=== PATIENT | male | born 1985 | race Caucasian/White ===

== ENCOUNTER 2017-01-16 06:36 | Emergency (ER) | payer MEDICAID ==
[~2017-01-16] VITALS: Ht 170.2 cm; Wt 82.5 kg
[2017-01-16 06:41] VITALS: Ht 170.2 cm; Wt 82.5 kg
[2017-01-16] MEDS ORDERED: ONDANSETRON 4 MG INJ IV STA (07:01)
[2017-01-16 07:23] LABS: BASOPHILS % 0.5 % (0.0-2.0); EOSINOPHILS % 0.1 % (0.0-7.0); HEMATOCRIT 47.9 % (42.0-52.0); HEMOGLOBIN 17.3 g/dl (14.0-18.0); LYMPHOCYTES # 1.9 10^3/ul (0.8-2.9); LYMPHOCYTES % 25.5 % (15.0-51.0); MEAN CORPUSCULAR HEMOGLOBIN 29.4 pg (29.0-33.0); MEAN CORPUSCULAR HGB CONC 36.1 g/dl (32.0-37.0); MEAN CORPUSCULAR VOLUME 81.3 fl (82.0-101.0); MEAN PLATELET VOLUME 9.5 fl (7.4-10.4); MONOCYTE # 0.7 10^3/ul (0.3-0.9); MONOCYTES % 9.4 % (0.0-11.0); NEUTROPHIL # 4.9 10^3/ul (1.6-7.5); NEUTROPHILS % 64.2 % (39.0-77.0); PLATELET COUNT 307 10^3/UL (140-415); RED BLOOD COUNT 5.89 10^6/ul (4.70-6.10); RED CELL DISTRIBUTION WIDTH 11.2 % (11.5-14.5); WHITE BLOOD COUNT 7.6 10^3/ul (4.8-10.8)
[2017-01-16] MEDS ORDERED: SOD CHLORIDE 0.9% 1,000 ML IV ONE (07:30)
[2017-01-16] MEDS ORDERED: LORAZEPAM 2 MG INJ IV ONE ×2 (07:30→09:00)
[2017-01-16 07:44] LABS: ALBUMIN 4.7 g/dl (3.3-4.9); ALBUMIN/GLOBULIN RATIO 1.42; CALCIUM 9.4 mg/dl (8.4-10.2); CREATININE 0.65 mg/dl (0.61-1.24)
[2017-01-16] MEDS ORDERED: POTASSIUM CHLORIDE (SR) 20 MEQ TAB PO STA (08:06)
[2017-01-16] MEDS ORDERED: LIDOCAINE/MYLANTA 40 ML BTL PO ONE (08:30)
[2017-01-16] MEDS ORDERED: ONDA-43 PO (08:32)
--- NOTE | 2017-01-16 09:08 | ERD ---
ER Documentation Chief Complaint Chief Complaint Complains of right side facial numbness HPI This is a 31-year-old male that presents to the ER with multiple complaints. Patient is a known alcoholic and had a binge drink that lasted from Thursday through Thursday. Yesterday patient did have 2 beers which was his last drink. Patient started experiencing anxiety, shakiness, numbness and tingling of his hands and face, nausea and vomiting vomiting is nonbilious nonbloody. Patient states that he is unable to drink or eat anything secondary to severe vomiting. Patient has been drinking since he was 13 years old. Patient has not passed out and has not had any history of seizures. Denies any suicidal ideations. ROS 12 point review of systems was done, all negative except per HPI. Medications Home Meds Active Scripts Ondansetron Hcl* (Zofran*) 4 Mg Tab, 4 MG PO Q4H Y for NAUSEA AND OR VOMITING, # 30 TAB Prov:LIZA BREAUX Eloise 01/16/17 Allergies Allergies: Coded Allergies: No Known Allergy (Unverified , 01/16/17) PMhx/Soc Medical and Surgical Hx: pt denies Medical Hx, pt denies Surgical Hx Hx Alcohol Use: Yes Hx Substance Use: No Hx Tobacco Use: Yes Smoking Status: Current every day smoker Physical Exam Vitals Vital Signs Date Time Temp Pulse Resp B/P Pulse Ox O2 Delivery O2 Flow Rate FiO2 01/16/17 06:41 97.9 83 20 142/91 97 Physical Exam GENERAL: The patient is well developed and appropriate for usual state of health , in no apparent distress. HEENT: Atraumatic. Conjunctivae are pink. Pupils equal, round, and reactive to light. Extraocular muscles are grossly intact. Bilateral tympanic membranes are clear with no evidence of erythema, effusion or dulling of the light reflex. The oropharynx is clear with no erythema or exudates. NECK: C-spine is soft and supple. There is no cervical lymphadenopathy. CHEST: Clear to auscultation bilaterally. There are no rales, wheezes or rhonchi. HEART: Regular rate and rhythm. No murmurs, clicks, rubs or gallops. ABDOMEN: Soft, nontender and nondistended. Good bowel sounds. No rebound or guarding. No gross peritonitis. No gross organomegaly or masses. No Graham sign or McBurney point tenderness. BACK: No midline or flank tenderness. NEURO: Alert and oriented. Cranial nerves II through XII are intact. Motor strength in all 4 extremities with 5/5 strength. Sensation grossly intact. Normal speech and gait. SKIN: There is no apparent rash or petechia. The skin is warm and dry. Result Diagram: 01/16/17 0715 01/16/17 0715 Results 24 hrs Laboratory Tests Test 01/16/17 07:15 White Blood Count 7.610^3/ul Red Blood Count 5.8910^6/ul Hemoglobin 17.3g/dl Hematocrit 47.9% Mean Corpuscular Volume 81.3fl Mean Corpuscular Hemoglobin 29.4pg Mean Corpuscular Hemoglobin Concent 36.1g/dl Red Cell Distribution Width 11.2% Platelet Count 15653^3/UL Mean Platelet Volume 9.5fl Neutrophils % 64.2% Lymphocytes % 25.5% Monocytes % 9.4% Eosinophils % 0.1% Basophils % 0.5% Nucleated Red Blood Cells % 0.0/100WBC Neutrophils # 4.910^3/ul Lymphocytes # 1.910^3/ul Monocytes # 0.710^3/ul Eosinophils # 0.010^3/ul Basophils # 0.010^3/ul Nucleated Red Blood Cells # 0.010^3/ul Sodium Level 139mmol/L Potassium Level 3.0mmol/L Chloride Level 94mmol/L Carbon Dioxide Level 27mmol/L Anion Gap 21 Blood Urea Nitrogen 6mg/dl Creatinine 0.65mg/dl Glucose Level 137mg/dl Calcium Level 9.4mg/dl Total Bilirubin 1.0mg/dl Direct Bilirubin 0.00mg/dl Indirect Bilirubin 1.0mg/dl Aspartate Amino Transf (AST/SGOT) 61IU/L Alanine Aminotransferase (ALT/SGPT) 115IU/L Alkaline Phosphatase 84IU/L Total Protein 8.0g/dl Albumin 4.7g/dl Globulin 3.30g/dl Albumin/Globulin Ratio 1.42 Current Medications Medications (Trade) Dose Ordered Sig/Alisa Route PRN Reason Start Time Stop Time Status Last Admin Dose Admin Ondansetron HCl 4 mg 4 mg ONCE STAT IV 01/16/17 07:01 01/16/17 07:05 DC 01/16/17 07:20 Sodium Chloride (NS) 1,000 ml @ 1,000 mls/hr Q1H ONCE IV 01/16/17 07:30 01/16/17 08:29 DC 01/16/17 07:20 Lorazepam (Ativan) 1 mg ONCE ONCE IV 01/16/17 07:30 01/16/17 07:31 DC 01/16/17 07:20 Potassium Chloride (Klor-Con 20) 40 meq ONCE STAT PO 01/16/17 08:06 01/16/17 08:07 DC 01/16/17 08:24 Miscellaneous Medication (Gi Cocktail (2)) 40 ml ONCE ONCE PO 01/16/17 08:30 01/16/17 08:31 DC 01/16/17 08:24 Lorazepam (Ativan) 1 mg ONCE ONCE IV 01/16/17 09:00 01/16/17 09:01 DC 01/16/17 08:51 Procedures/MDM This is a 31-year-old male that presents to the ER after a drinking binge with multiple complaints. Patient was given fluids and blood drawn was done. He did have some hypokalemia, I discussed these findings with my supervising physician Dr. Corona. Patient was given 40 mEq of K-Dur in the ER without any complications. EKG was taken 79bpm there was no evidence of ST elevation, T- wave inversion, flattened T waves.EKG was read by Dr. Corona. Patient did not have any episodes of vomiting in the ER. He was Given 1 mg of Ativan IV, however upon reassessment patient stated he still felt very anxious. He was then given another milligram of Ativan which helped him. Patient is stable for outpatient follow-up. He needs to follow-up with his primary care doctor within 1-2 days or return to ER sooner if symptoms worsen. My medical decision making shared with the patient he understands and agrees with plan. Departure Diagnosis: Primary Impression: Vomiting Condition: Stable Patient Instructions: Alcohol Addiction Additional Instructions: Llame al doctor NASIR y leonel violetta DENI PARA DENTRO DE 1-2 BEAR.Dgale a la secretaria que nosotros le instruimos hacer esta deni.Avise o llame si gill condicin se empeora antes de la deni. Regresa aqui si peor o no mejor. LIZA BREAUX Jan 16, 2017 09:08
[2017-01-16 09:15] VITALS: BP 128/82; PULSE 93; RESP 18; TEMP 98.4
== END 2017-01-16 09:15 | disposition home or self-care (01) ==
LOC: FTE 06:36
DX: R11.10 Vomiting, unspecified (principal); F17.210 Nicotine dependence, cigarettes, uncomplicated; R07.9 Chest pain, unspecified
CPT/HCPCS: 80053; 85025; 96374; 96375; 96376; J2060; J2405; J7030; Z7502; Z7610; 93005

== ENCOUNTER 2017-04-09 02:10 | Emergency (ER) | END 2017-04-09 07:26 | disposition home or self-care (01) ==